=== PATIENT | male | born 1980 | race Two or more races ===

== ENCOUNTER 2019-06-30 22:28 | Emergency (ER) | payer OTHER ==
[~2019-06-30] VITALS: Ht 180.3 cm; Wt 81.6 kg
== END 2019-07-01 04:00 | disposition home or self-care (01) ==
LOC: ER 22:28 → EDBD 23:01 → ER 23:01
DX: R03.0 Elevated blood-pressure reading, without diagnosis of hypertension (principal); E05.80 Other thyrotoxicosis without thyrotoxic crisis or storm